=== PATIENT | male | born 1945 | race Caucasian/White ===

== ENCOUNTER → 2016-06-13 | Outpatient (CLI) | payer OTHER ==
[~2016-06-13] MED LIST: ASPI81TA28 PO; ATOR10TA88 PO; GLUCTAB18 PO; LEVO25TA PO; VNTHFA/IN INH
--- NOTE | 2016-06-13 13:48 | DIAGNOSTIC IMAGING REPORT ---
C-SPINE ROUTINE 4 OR 5 VIEWS CLINICAL HISTORY: Neck pain with myelopathy. COMPARISON STUDY: No previous studies for comparison. FINDINGS: C7 is partially obscured on this exam. Alignment of the visualized portions of the cervical spine is anatomic and no acute fracture is identified. Disc spaces are preserved. There is mild to moderate anterior osteophytosis, most pronounced at the C5-C6 level. Bony neural foramen appear patent. IMPRESSION: 1. Partial obscuration of C7. 2. Preserved disc spaces with mild to moderate anterior osteophytosis. 3. Patent bony neural foramen. Electronically signed by: Austin Jackson M.D. 06/13/2016 1:47 PM Dictated Date/Time: 06/13/2016 1:45 PM
== END | disposition home or self-care (01) ==
LOC: C.RAD 13:15
PROVIDERS: ATTEND Family Medicine
DX: M51.26 Other intervertebral disc displacement, lumbar region (principal)

== ENCOUNTER → 2016-10-05 | Outpatient (CLI) | payer OTHER ==
[~2016-10-05] MED LIST changes: +ATOR10TA82 PO; -ATOR10TA88 PO
--- NOTE | 2016-10-05 12:51 | DIAGNOSTIC IMAGING REPORT ---
RIGHT HIP UNILATERAL 2 VIEWS CLINICAL HISTORY: Right hip pain. COMPARISON: None FINDINGS: Alignment of the right hip is anatomic. There is no fracture or suspicious lesion. Joint space is preserved. There is moderate osteophytosis of the right hip, most pronounced along the acetabulum. There is no evidence for avascular necrosis. IMPRESSION: 1. No acute fracture. 2. Preserved right hip joint space with moderate osteophytosis of the right hip. Electronically signed by: Austin Jackson M.D. 10/05/2016 12:50 PM Dictated Date/Time: 10/05/2016 12:49 PM
== END | disposition home or self-care (01) ==
LOC: C.RAD 12:27
PROVIDERS: ATTEND Family Medicine
DX: M25.551 Pain in right hip (principal); M25.751 Osteophyte, right hip

== ENCOUNTER → 2016-10-07 | Outpatient (CLI) | payer OTHER ==
--- NOTE | 2016-10-07 08:48 | DIAGNOSTIC IMAGING REPORT ---
ABDOMINAL AORTIC ULTRASOUND CLINICAL HISTORY: Abdominal aortic aneurysm. COMPARISON STUDY: No previous studies for comparison. FINDINGS: The caliber of the proximal abdominal aorta was normal, measuring 2.5 x 2.3 cm. There is mild aneurysmal dilatation of the mid abdominal aorta, measuring 3 x 2.8 cm. There is a 4.5 x 4.4 cm infrarenal abdominal aortic aneurysm. The caliber of the proximal bilateral common iliac arteries is normal. There is at least moderate atherosclerotic plaque within these vessels. IMPRESSION: 4.5 x 4.4 cm infrarenal abdominal aortic aneurysm. Electronically signed by: Austin Jackson M.D. 10/07/2016 8:46 AM Dictated Date/Time: 10/07/2016 8:44 AM
== END | disposition home or self-care (01) ==
LOC: C.ULTR 08:18
PROVIDERS: ATTEND Family Medicine
DX: I71.4 Abdominal aortic aneurysm, without rupture (principal)

== ENCOUNTER → 2016-12-22 | Day surgery (SDC) | payer BC, OTHER ==
[2016-12-12 12:32] VITALS: BMI 28.0
[~2016-12-22] VITALS: Ht 175.3 cm; Wt 86.4 kg
[~2016-12-22] MED LIST changes: -ATOR10TA82 PO; +ATOR10TA88 PO; +LIDOCAINE HCL 2% 2 ML VIAL (20MG/ML) ONE; +PROPOFOL IV EMULSION 10 MG/ML 20 ML VIAL IV ONE; +SODIUM CHLORIDE 0.9% 500ML 500 ML IV ONE
[2016-12-22 13:07] VITALS: Ht 175.3 cm; Wt 86.4 kg
--- NOTE | 2016-12-22 13:09 | Endo History and Physical ---
History & Physical Date of Service: Dec 22, 2016. Chief Complaint: History of colon polyps Referring Physician: Dr. Rowdy Christensen History of Present Illness 71 yo CM who presents for colonoscopy secondary to history of colon polyps. Past Surgical History Hx Cardiac Surgery: Yes (HEART CATH, NO STENTS) Hx Internal Defibrillator: No Hx Pacemaker: No Hx Abdominal Surgery: No Hx of Implantable Prosthesis: No Hx Post-Op Nausea and Vomiting: No Hx Cancer Surgery: Yes (BCC REMOVALS) Hx Thoracic Surgery: No Hx Orthopedic: No Hx Urinary Tract Surgery: Yes (LITHOTRIPSY) Family History None Social History Smoking Status: Former Smoker Hx Substance Use: No Hx Alcohol Use: Yes (OCCASIONAL) Allergies Coded Allergies: No Known Allergies (Unverified , 12/22/16) Current Medications Reported Home Medications Medications Dose Route/Sig Max Daily Dose Days Date Category Ventolin Hfa (Albuterol) 200 Puffs/50661 Mcg Aers 2-4 Puffs INH Q6H PRN 12/12/16 Reported Osteo Bi-Flex Regular Str (Glucosamine-Chondroitin) 1 Tab Tab 1 Tab PO QAM 12/12/16 Reported Aspirin Ec (Aspirin) 81 Mg Tab 81 Mg PO QPM 12/12/16 Reported Synthroid (Levothyroxine Sodium) 25 Mcg Tab 25 Mcg PO QAM 12/12/16 Reported Lipitor (Atorvastatin Calcium) 10 Mg Tab 10 Mg PO QPM 12/12/16 Reported Vital Signs Weight (Kilograms): 86.36 Height (Feet): 5 Height (Inches): 9 Physical Exam General Appearance: WD/WN, no apparent distress Respiratory/Chest: Auscultation: breath sounds normal Cardiovascular: Heart Auscultation: RRR Abdomen: Bowel Sounds: normal Inspection & Palpation: soft, non-distended, no tenderness, guarding & rebound Assessment and Plan Assessment: 71 yo CM who presents for colonoscopy secondary to history of colon polyps. Plan: Proceed with colonoscopy.
--- NOTE | 2016-12-22 14:14 | GI REPORT ---
Procedure Date: 12/22/2016 1:22 PM Procedure: Colonoscopy Indications: High risk colon cancer surveillance: Personal history of colonic polyps Medicines: Monitored Anesthesia Care Complications: No immediate complications. Estimated Blood Loss: Estimated blood loss: none. Procedure: Pre-Anesthesia Assessment: - Prior to the procedure, a History and Physical was performed, and patient medications and allergies were reviewed. The patient's tolerance of previous anesthesia was also reviewed. The risks and benefits of the procedure and the sedation options and risks were discussed with the patient. All questions were answered, and informed consent was obtained. Prior Anticoagulants: The patient has taken aspirin, last dose was 1 day prior to procedure. ASA Grade Assessment: III - A patient with severe systemic disease. After reviewing the risks and benefits, the patient was deemed in satisfactory condition to undergo the procedure. After I obtained informed consent, the scope was passed under direct vision. Throughout the procedure, the patient's blood pressure, pulse, and oxygen saturations were monitored continuously. The scope was introduced through the anus and advanced to the cecum, identified by appendiceal orifice and ileocecal valve. The colonoscopy was performed without difficulty. The patient tolerated the procedure well. The quality of the bowel preparation was good. The terminal ileum, ileocecal valve, appendiceal orifice, and rectum were photographed. Findings: A 4 mm polyp was found in the sigmoid colon. The polyp was sessile. The polyp was removed with a cold snare. Resection and retrieval were complete. To prevent bleeding after the polypectomy, one hemostatic clip was successfully placed (MR conditional). There was no bleeding at the end of the procedure. Non-bleeding internal hemorrhoids were found during retroflexion. The hemorrhoids were small. Impression: - One 4 mm polyp in the sigmoid colon, removed with a cold snare. Resected and retrieved. Clip (MR conditional) was placed. - Non-bleeding internal hemorrhoids. Recommendation: - Resume previous diet. - Continue present medications. - Repeat colonoscopy for surveillance based on pathology results. - Return to primary care physician as previously scheduled. Franco Costello DO 12/22/2016 2:14:29 PM This report has been signed electronically. Note Initiated On: 12/22/2016 1:22 PM I attest to the content of the Intraoperative Record and orders documented therein, exceptions below
--- NOTE | 2016-12-22 14:16 | Discharge Instructions ---
Endoscopy Patient Instructions Date / Procedure(s) Performed Dec 22, 2016. Colonoscopy Allergy Information Coded Allergies: No Known Allergies (Unverified , 12/22/16) Discharge Date / Findings Dec 22, 2016. Colon polyp Internal hemorrhoids Medication Instructions Restart Stopped Medication(s): OK to resume all medications today as prescribed Reported Home Medications Medications Dose Route/Sig Max Daily Dose Days Date Category Ventolin Hfa (Albuterol) 200 Puffs/55579 Mcg Aers 2-4 Puffs INH Q6H PRN 12/12/16 Reported Osteo Bi-Flex Regular Str (Glucosamine-Chondroitin) 1 Tab Tab 1 Tab PO QAM 12/12/16 Reported Aspirin Ec (Aspirin) 81 Mg Tab 81 Mg PO QPM 12/12/16 Reported Synthroid (Levothyroxine Sodium) 25 Mcg Tab 25 Mcg PO QAM 12/12/16 Reported Lipitor (Atorvastatin Calcium) 10 Mg Tab 10 Mg PO QPM 12/12/16 Reported Provider Instructions Activity Restrictions - No exercising or heavy lifting for 24 hours. - Do not drink alcohol the day of the procedure. - Do not drive a car or operate machinery until the day after the procedure. - Do not make any important decisions or sign important papers in 24 hours after the procedure. Following Day: - Return to full activity which may include returning to work/school. Diet Start your diet with liquids and light foods (jello, soup, juice, toast). Then eat your usual diet if not nauseated. Treatment For Common After Affects For mild abdominal pain, bloating, or excessive gas: - Rest - Eat lightly - Lie on right side Follow-Up Information Follow-up with DR TILLMAN as scheduled Anesthesia Information What You Should Know You have had a procedure that required some medicine to reduce anxiety and discomfort. This treatment is called moderate sedation. After receiving the treatment, you may be sleepy, but you will be able to breathe on your own. The effects of the treatment may last for several hours. Follow these instructions along with Activity/Diet recommendations noted above: * Do NOT do anything where dizziness or clumsiness would be dangerous. * Rest quietly at home today, then you can be up and about tomorrow. * Have a responsible person stay with you the rest of today. * You may have had an I.V. today. If so, you may take the dressing off later today. Recommendations Call your doctor if: * Trouble breathing * Continuous vomiting for more than 24 hours * Temperature above 101 degrees * Severe abdominal pain or bloating * Pain not relieved by pain medicine ordered * There is increased drainage or redness from any incision * A large amount of rectal bleeding greater than 2-3 tablespoons. (If you had a polyp/s removed or have hemorrhoids, a small amount of blood - from the rectum is to be expected.) * You have any unanswered questions or concerns. IN THE EVENT OF A SERIOUS EMERGENCY, GO TO THE NEAREST EMERGENCY ROOM Your discharge instructions were prepared by provider Franco Costello. Patient Instructions Signature Page Bartolome Lutz Patient (or Guardian) Signature/Date: I have read and understand the instructions given to me by my caregivers. Caregiver/RN/Doctor Signature/Date: The above-named patient and/or guardian has received patient instructions on this date. + Original Patient Signature Page (only) stays with chart. Please make copy for patient.
[2016-12-22 14:21] VITALS: BP 140/80; PULSE 67; O2SAT 97
--- NOTE | 2016-12-22 14:34 | Anesthesiology Progress Note ---
Anesthesia Post Op Note Date & Time Dec 22, 2016 at 14:33 Vital Signs Pain Intensity: 3 Vital Signs Past 12 Hours Date Time Temp Pulse Resp B/P (MAP) Pulse Ox O2 Delivery O2 Flow Rate FiO2 12/22/16 14:21 67 16 140/80 (100) 97 Room Air 12/22/16 14:06 70 16 126/73 (90) 95 Room Air 12/22/16 13:52 75 14 104/71 (82) 95 Room Air 12/22/16 13:17 36.7 81 18 161/91 (114) 96 Room Air Notes Mental Status: alert / awake / arousable, participated in evaluation Pt Amnestic to Procedure: Yes Nausea / Vomiting: adequately controlled Pain: adequately controlled Airway Patency, RR, SpO2: stable & adequate BP & HR: stable & adequate Hydration State: stable & adequate Anesthetic Complications: no major complications apparent
== END | disposition home or self-care (01) ==
LOC: C.GI 12:55
PROVIDERS: ATTEND Internal Medicine
DX: Z12.11 Encounter for screening for malignant neoplasm of colon (principal); D12.5 Benign neoplasm of sigmoid colon; K64.8 Other hemorrhoids; G62.9 Polyneuropathy, unspecified; J44.9 Chronic obstructive pulmonary disease, unspecified; Z79.899 Other long term (current) drug therapy; Z87.891 Personal history of nicotine dependence

== ENCOUNTER → 2016-12-30 | Outpatient (CLI) | payer OTHER ==
[~2016-12-30] MED LIST changes: -LIDOCAINE HCL 2% 2 ML VIAL (20MG/ML) ONE; -PROPOFOL IV EMULSION 10 MG/ML 20 ML VIAL IV ONE; -SODIUM CHLORIDE 0.9% 500ML 500 ML IV ONE
[2016-12-30 14:10] LABS: ALT/SGPT 33 U/L (12-78); BLOOD UREA NITROGEN 11 mg/dl (7-18); BUN/CREATININE RATIO 8.4 (10-20); CALCIUM 8.8 mg/dl (8.5-10.1); CARBON DIOXIDE 29 mmol/L (21-32); CHLORIDE 107 mmol/L (98-107); GLUCOSE 107 mg/dl (70-99); POTASSIUM 4.4 mmol/L (3.5-5.1); SODIUM 142 mmol/L (136-145)
[2016-12-30 14:21] LABS: CHOLESTEROL 119 mg/dl (0-200); CHOLESTEROL/HDL RATIO 3.8; HDL CHOLESTEROL 31 mg/dl; TRIGLYCERIDES 222 mg/dl (0-150); VERY LOW DENSITY LIPOPROT CALC 44 mg/dl
== END | disposition home or self-care (01) ==
LOC: C.LABMFLN 08:34
PROVIDERS: ATTEND Family Medicine
DX: E78.5 Hyperlipidemia, unspecified (principal); E03.9 Hypothyroidism, unspecified; G56.21 Lesion of ulnar nerve, right upper limb; G56.01 Carpal tunnel syndrome, right upper limb

== ENCOUNTER → 2017-01-05 | Outpatient (CLI) | payer OTHER ==
--- NOTE | 2017-01-05 12:53 | DIAGNOSTIC IMAGING REPORT ---
CT LUNG SCREENING, LOW DOSE WITH COMPUTER-AIDED DETECTION (CAD) CLINICAL HISTORY: Former smoker. COMPARISON STUDY: No previous studies for comparison. CT DOSE: 90.93 mGy.cm TECHNIQUE: Low-dose helical CT was acquired without intravenous contrast from lung apices to bases and reconstructed at 2.5 mm every 2 mm. CAD was utilized for this study. A dose lowering technique was utilized adhering to the principles of ALARA. FINDINGS: No pneumothorax. No pleural effusions. Mild paraseptal emphysema at the lung apices. Linear density base of the left lower lobe favor subsegmental atelectasis. Otherwise, the lungs are clear. No pulmonary nodules identified. Best seen on image 119 of 321 there is a 6 mm right suprahilar nodular density abutting the pulmonary vessels. Therefore, this favors a small lymph node. No suspicious lytic or blastic osseous lesions. Prominent AP window lymph nodes which measure 9 and 8 mm in short axis diameter. Otherwise, no mediastinal or hilar lymphadenopathy. No pericardial effusion. The heart is normal in size. Normal caliber thoracic aorta. The visualized unenhanced liver, spleen, and adrenal glands are unremarkable. IMPRESSION: 1. No pulmonary nodules identified. Please refer to the recommendations below for follow-up. 2. A few prominent AP window lymph nodes. These bear watching on future examinations. CAD FINDINGS: Overall Lung RADS Category: 1 Lung RADS Management Recommendation: Lung-RADS 1: Continue annual screening in 12 months. Lung RADS Follow Up Date: 2018-01-05 Lung RADS Nodule ID: Electronically signed by: Walter Dumont M.D. 01/05/2017 12:51 PM Dictated Date/Time: 01/05/2017 12:44 PM
== END | disposition home or self-care (01) ==
LOC: C.CTS 12:24
PROVIDERS: ATTEND Family Medicine
DX: Z12.2 Encounter for screening for malignant neoplasm of respiratory organs (principal); Z87.891 Personal history of nicotine dependence

== ENCOUNTER 2017-07-03 09:44 | Emergency (ER) | payer OTHER ==
[~2017-07-03] VITALS: Ht 177.8 cm; Wt 92.1 kg
[~2017-07-03 09:44] MED LIST changes: +ATOR10TA82 PO; -ATOR10TA88 PO
[2017-07-03 09:46] VITALS: TEMP 36.5; Ht 177.8 cm; Wt 92.1 kg
[2017-07-03] MEDS ORDERED: METOPROLOL SUCC 25MG EXT REL TAB PO STA (10:13)
[2017-07-03] MEDS ORDERED: ASPIRIN 81 MG CHEW PO STA (10:13)
[2017-07-03 10:36] LABS: HEMATOCRIT 48.7 % (42-52); HEMOGLOBIN 17.9 g/dL (14.0-18.0); MEAN CELL VOLUME 88.9 fL (80-100); MEAN CORPUSCULAR HEMOGLOBIN 32.7 pg (25-34); MEAN CORPUSCULAR HGB CONC 36.8 g/dl (32-36); MEAN PLATELET VOLUME 9.7 fL (7.4-10.4); PLATELET COUNT 232 K/uL (130-400); RED CELL DISTRIBUTION WIDTH CV 12.8 % (11.5-14.5); RED CELL DISTRIBUTION WIDTH SD 41.6 fL (36.4-46.3); WHITE BLOOD COUNT 8.08 K/uL (4.8-10.8)
[2017-07-03] MEDS ORDERED: NTRGSL/4 UT (10:38)
[2017-07-03] MEDS ORDERED: METO25TA3 PO (10:38)
[2017-07-03] MEDS ORDERED: LEVO25TA PO (10:38)
[2017-07-03] MEDS ORDERED: GLUCTAB18 PO (10:38)
[2017-07-03] MEDS ORDERED: LPT10 PO (10:38)
[2017-07-03] MEDS ORDERED: PRVHFAIN INH (10:38)
[2017-07-03] MEDS ORDERED: ASPI81TA28 PO (10:38)
[2017-07-03 10:45] LABS: ALBUMIN 4.4 gm/dl (3.4-5.0); ALT/SGPT 43 U/L (12-78); BLOOD UREA NITROGEN 10 mg/dl (7-18); CALCIUM 9.3 mg/dl (8.5-10.1); CARBON DIOXIDE 28 mmol/L (21-32); CREATININE 1.35 mg/dl (0.60-1.40); GLUCOSE 104 mg/dl (70-99); LIPASE 237 U/L (73-393); SODIUM 139 mmol/L (136-145)
[2017-07-03 10:49] LABS: ALKALINE PHOSPHATASE 101 U/L (45-117); AST/SGOT 23 U/L (15-37); TOTAL PROTEIN 8.2 gm/dl (6.4-8.2)
--- NOTE | 2017-07-03 10:49 | DIAGNOSTIC IMAGING REPORT ---
CHEST ONE VIEW PORTABLE CLINICAL HISTORY: 71 years-old Male presenting with CHEST PAIN. TECHNIQUE: Portable upright AP view of the chest was obtained. COMPARISON: None. FINDINGS: Atherosclerosis of the aortic arch. Cardiac silhouette normal in size. Mild elevation of the bilateral hemidiaphragms. Minimal basilar opacities. No pleural effusion or pneumothorax. Degenerative changes of the thoracic spine. IMPRESSION: 1. Minimal bibasilar opacities likely atelectasis. No other evidence of acute cardiopulmonary disease. Electronically signed by: Sd Tomas M.D. 07/03/2017 10:47 AM Dictated Date/Time: 07/03/2017 10:46 AM
[2017-07-03 11:55] VITALS: O2SAT 95
[2017-07-03 15:27] VITALS: BP 145/91; PULSE 105; O2SAT 96
--- NOTE | 2017-07-03 16:30 | EMERGENCY ROOM VISIT NOTE ---
History Report prepared by Taylor: Yenni Díaz Under the Supervision of: Dr. Jesus Manuel Faustin M.D. First contact with patient: 10:03 Chief Complaint: CARDIAC ASSESSMENT Stated Complaint: TIGHTNESS IN CHEST ON LEFT SIDE- CARDIAC HX Nursing Triage Summary: Pt states, "I have pressure around my heart, on the left side." Pain started approx 0630. Denies worsening sob, dizziness/lightheaded, n/v. Denies radiation of pain. Cardiac cath approx 2004 after an abnormal EKG. Reports hx of aneurysm History of Present Illness The patient is a 71 year old male who presents to the Emergency Room with complaints of persistent chest tightness since 0630 this morning. He states the tightness in his chest is more on his left side. He rates his pain a 2/10 in severity. He reports the pain is basically gone. He states the discomfort feels like indigestion, though he reports that he did not eat this morning. He reports having a sharp pain in his chest two weeks ago. He denies any shortness of breath, nausea, or sweating. He denies any use of nitroglycerin. He states that he had some abnormalities with his heart a few years ago. He has a history of cardiac catheterization, though he has not had any stents or cardiac surgeries. He reports chronic back problems with associated leg numbness. He regularly takes baby Aspirin and Lipitor nightly. He reports that he has not taken is blood pressure medication, because he has not had anything to eat. He takes Metoprol. Source of History: patient Onset: 0630 this morning Position: chest Symptom Intensity: 2/10 Quality: other (tightness) Timing: other (persistent) Associated Symptoms: No SOB, No nausea Note: He denies any sweating. Review of Systems See HPI for pertinent positives & negatives. A total of 10 systems reviewed and were otherwise negative. Past Medical & Surgical Medical Problems: (1) Abdominal aneurysm (2) Back pain (3) CAD (coronary artery disease) (4) COPD (chronic obstructive pulmonary disease) (5) HTN (hypertension) Family History FH: Parkinson's disease FHx: dementia FHx: stroke Hypertension Social History Smoking Status: Former Smoker (1 ppd) Smokeless Tobacco Use: No Alcohol Use: none Drug Use: none Marital Status: Housing Status: lives with significant other Occupation Status: unemployed Current/Historical Medications Scheduled Aspirin (Aspirin Ec), 81 MG PO QPM Atorvastatin (Lipitor), 10 MG PO QPM Glucosamine-Chondroitin (Osteo Bi-Flex Regular Str), 1 TAB PO QAM Levothyroxine Sodium (Synthroid), 25 MCG PO QAM Metoprolol Succ (Toprol Xl) (Toprol-Xl), 25 MG PO DAILY Scheduled PRN Albuterol (Ventolin Hfa), 2 PUFFS INH Q4 PRN for COUGH/WHEEZE Albuterol Hfa (Ventolin Hfa), 2-4 PUFFS INH Q6H PRN for SOB/Wheezing Nitroglycerin (Nitrostat), 0.4 MG UT PRN PRN for Chest Pain Allergies Coded Allergies: No Known Allergies (Unverified , 12/22/16) Physical Exam Vital Signs Date Time Temp Pulse Resp B/P (MAP) Pulse Ox O2 Delivery O2 Flow Rate FiO2 07/03/17 15:27 105 18 145/91 96 Room Air 07/03/17 13:58 82 18 134/88 98 Room Air 07/03/17 13:26 80 18 121/82 97 Room Air 07/03/17 11:55 95 Room Air 07/03/17 11:44 74 16 95 Room Air 07/03/17 11:31 128/85 07/03/17 11:14 80 18 94 Room Air 07/03/17 11:01 142/95 07/03/17 10:45 96 Room Air 07/03/17 10:45 84 18 148/93 95 Room Air 07/03/17 10:44 88 22 95 07/03/17 10:34 85 07/03/17 10:31 148/93 07/03/17 09:46 36.5 89 18 182/103 96 Room Air Physical Exam GENERAL: Patient is in no acute distress. HEENT: No acute trauma, normocephalic atraumatic, mucous membranes moist, no nasal congestion, no scleral icterus. NECK: No stridor, no adenopathy, no meningismus, trachea is midline. LUNGS: Clear to auscultation bilaterally, no wheeze, no rhonchi, breath sounds equal. HEART: Without murmurs gallops or rubs, regular rate and rhythm. ABDOMEN: Soft, nontender, bowel sounds positive, no hernias, no peritonitis. EXTREMITIES: No cyanosis or edema, full range of motion of all the joints without pain or difficulty, no signs for acute trauma. NEUROLOGIC: Oriented x 3, no acute motor or sensory deficits, no focal weakness. SKIN: No rash, no jaundice, no diaphoresis. Medical Decision & Procedures ER Provider Diagnostic Interpretation: Radiology results as stated below per my review and radiologist interpretation: CHEST ONE VIEW PORTABLE CLINICAL HISTORY: 71 years-old Male presenting with CHEST PAIN. TECHNIQUE: Portable upright AP view of the chest was obtained. COMPARISON: None. FINDINGS: Atherosclerosis of the aortic arch. Cardiac silhouette normal in size. Mild elevation of the bilateral hemidiaphragms. Minimal basilar opacities. No pleural effusion or pneumothorax. Degenerative changes of the thoracic spine. IMPRESSION: 1. Minimal bibasilar opacities likely atelectasis. No other evidence of acute cardiopulmonary disease. Electronically signed by: Sd Tomas M.D. 07/03/2017 10:47 AM Dictated Date/Time: 07/03/2017 10:46 AM Laboratory Results 07/03/17 10:05 07/03/17 10:05 Test 07/03/17 10:05 07/03/17 12:32 Red Blood Count 5.48 M/uL (4.7-6.1) Mean Corpuscular Volume 88.9 fL (80-100) Mean Corpuscular Hemoglobin 32.7 pg (25-34) Mean Corpuscular Hemoglobin Concent 36.8 g/dl (32-36) RDW Standard Deviation 41.6 fL (36.4-46.3) RDW Coefficient of Variation 12.8 % (11.5-14.5) Mean Platelet Volume 9.7 fL (7.4-10.4) Prothrombin Time 10.5 SECONDS (9.0-12.0) Prothromb Time International Ratio 1.0 (0.9-1.1) Activated Partial Thromboplast Time 24.0 SECONDS (21.0-31.0) Partial Thromboplastin Ratio 0.9 Anion Gap 7.0 mmol/L (3-11) Est Creatinine Clear Calc Drug Dose 55.6 ml/min Estimated GFR () 59.9 Estimated GFR (Non- 51.7 BUN/Creatinine Ratio 7.5 (10-20) Calcium Level 9.3 mg/dl (8.5-10.1) Total Bilirubin 0.8 mg/dl (0.2-1) Aspartate Amino Transf (AST/SGOT) 23 U/L (15-37) Alanine Aminotransferase (ALT/SGPT) 43 U/L (12-78) Alkaline Phosphatase 101 U/L (45-117) Total Protein 8.2 gm/dl (6.4-8.2) Albumin 4.4 gm/dl (3.4-5.0) Globulin 3.8 gm/dl (2.5-4.0) Albumin/Globulin Ratio 1.2 (0.9-2) Lipase 237 U/L (73-393) Troponin I < 0.015 ng/ml (0-0.045) Laboratory results reviewed by me. Medications Administered Medications (Trade) Dose Ordered Sig/Sharad Route Start Time Stop Time Status Last Admin Dose Admin Aspirin (Aspirin Chew) 324 mg NOW STAT PO 07/03/17 10:13 07/03/17 10:17 DC 07/03/17 10:44 324 MG Metoprolol Succinate (Toprol Xl Tab) 25 mg NOW STAT PO 07/03/17 10:13 07/03/17 10:17 DC 07/03/17 10:44 25 MG ECG Per My Interpretation Indication: chest pain Rate (beats per minute): 81 Rhythm: normal sinus Findings: no ectopy (no PVCs), other (No ST elevation) Change: Patient's electrocardiogram interpreted by me. ED Course 1006: The patient was evaluated in room B10. A complete history and physical exam was performed. 1013: Ordered Toprol 25 mg PO and Aspirin 324 mg PO 1116: I spoke with SCARLET Reyes history department chair. We discussed the patient's case. He will review the patients case. 1123: I spoke with SCARLET Reyes history department chair. He recommends a second troponin sent to lab at 1200 today. He will consider administering a stress test. 1317: I reassessed the patient at this time. He is feeling better and resting comfortably. The patient will be taken to the [facility] for further evaluation by Dr. Willett, history department chair. 1515: I spoke with SCARLET Reyes history department chair. He states the patient's stress test is normal. The patient will be discharged home. 1518: I reassessed the patient at this time. He is feeling better and resting comfortably. I discussed the results and treatment plan with the patient. I answered all pertaining questions that he had. He expressed understanding and verbalized agreement. The patient will be discharged home. Medical Decision The patient is a 71 year old male who presents to the ED with complaints of chest tightness. Differential diagnoses considered include angina, musculoskeletal pain, reflux, gastritis, PNA, PE, and aortic dissection. There is no leukocytosis or concerning anemia. No significant electrolyte abnormality, kidney failure or hepatitis. EKG shows a normal sinus rhythm, no acute ischemia. Cardiac enzyme testing 2 is not consistent with acute cardiac injury. There is no coagulopathy. Patient was given his typical dose of oral metoprolol, he had not taken his metoprolol this morning. He received oral aspirin. I discussed the case with cardiology. The patient was felt a good candidate for a stress test. This was performed and was read by our history department chair as essentially unremarkable. The patient was reassured by his workup, he is being discharged with family doctor follow-up. The cause for the pain/tightness is unclear, from a cardiac standpoint, things seem stable. Medication Reconcilliation Current Medication List: was personally reviewed by me Blood Pressure Screening Patient's blood pressure: Elevated blood pressure Blood pressure disposition: Elevated BP felt to be situational Consults Time Called: 1105 Consulting Physician: SCARLET Reyes history department chair Returned Call: [phone] I spoke with SCARLET Reyes history department chair. We discussed the patient's case. He will review the patients case. 1123: I spoke with SCARLET Reyes history department chair. He recommends a second troponin sent to lab at 1200 today. He will consider administering a stress test. 1515: I spoke with SCARLET Reyes history department chair. He states the patient's stress test is normal. The patient will be discharged home. Impression Primary Impression: Precordial chest pain Scribe Attestation The scribe's documentation has been prepared under my direction and personally reviewed by me in its entirety. I confirm that the note above accurately reflects all work, treatment, procedures, and medical decision making performed by me. Departure Information Dispostion Home / Self-Care Referrals Rowdy Christensen M.D. (PCP) Forms IMPORTANT VISIT INFORMATION Patient Instructions My [facility] Additional Instructions heart testing and stress test today were ok follow with jamie puckett for a recheck later this week return for worsening symptoms
--- NOTE | 2017-07-03 16:56 | EXERCISE STRESS ECHO ---
*NOTICE TO RECEIVING LIBERTARIAN AGENCY This information is strictly Confidential and protected under [place] law. [place] law prohibits you from making any further disclosure of this information unless further disclosure is expressly permitted by the written consent of the person to whom it pertains or is authorized by law. A general authorization for the release of medical or other information is not sufficient for this purpose. Hospital accepts no responsibility if the information is made available to any other person, INCLUDING THE PATIENT. Interpretation Summary * Name: ANTHONY REINA Study Date: 07/03/2017 01:46 PM BP: 154/88 mmHg * Patient Location: .ED HR: 72 * : 1945 (M/d/yyyy) Gender: Male Height: 70 in * Age: 71 yrs Ethnicity: [place] Weight: 203 lb * Ordering Physician: Jesus Manuel Faustin * Referring Physician: Reece De La Vega * Performed By: Gabriela Banks RCS * * Reason For Study: Chest Pain * BSA: 2.1 m2 * -- Conclusions -- * Left ventricular systolic function is normal. * Grade I diastolic dysfunction, (abnormal relaxation pattern). * Diagnostic exercise echocardiogram without evidence of inducible ischemia. Procedure Details * ECHOEX, CPT #10260 * ECHO COLOR FLOW, CPT #73459 * ECHO DOPPLER, CPT #75404 Left Ventricular Findings with Stress * Diagnostic exercise echocardiogram without evidence of inducible ischemia. Left Ventricle * The left ventricle is normal in size. * There is normal left ventricular wall thickness. * Left ventricular systolic function is normal. * Grade I diastolic dysfunction, (abnormal relaxation pattern). * The left ventricular wall motion is normal at rest. Right Ventricle * The right ventricle is normal in size and function. * The right ventricular systolic function is normal as assessed by tricuspid annular plane systolic excursion (TAPSE) (normal >1.5 cm). Atria * The left atrial size is normal. * Right atrial size is normal. Mitral Valve * The mitral valve is grossly normal. * Significant mitral regurgitation is absent. Tricuspid Valve * The tricuspid valve is not well visualized, but is grossly normal. * There is trace tricuspid regurgitation. Aortic Valve * The aortic valve is normal in structure and function. * The aortic valve is trileaflet. * No hemodynamically significant valvular aortic stenosis. * There is no significant aortic regurgitation. Great Vessels * The aortic root is normal size. Pericardium * There is no pericardial effusion. Stress Parameters * Normal baseline electrocardiogram. * There was [address] segment depression at peak exertion. * The stress portion of this study was personally supervised by the undersigned interpreting physician. * Rest heart rate was '72' BPM. * Rest blood pressure was '154/88' * Maximum heart rate achieved was 153 bpm. * Maximum heart rate was 104 % of maximum age-predicted heart rate. * Maximum blood pressure was '218/89' * Total exercise time was '6:00' * Maximum exercise MET level achieved was '7.0' METS * Maximum treadmill speed was '2.5' miles per hour. * Maximum treadmill elevation was '12'% grade. * Exercise was terminated due to 'fatigue' Left Ventricular Findings with Stress * Baseline EKG was normal There was [address] segment depression at peak exertion Baseline blood pressure was slightly elevated in the patient had hypertensive response to exercise Baseline echocardiographic images were normal There was normal augmentation of all segments without development of wall motion abnormalities at peak exertion No symptoms reported during the test MMode 2D Measurements and Calculations IVSd 0.99 cm IVSs 1.6 cm LVIDd 3.4 cm LVIDs 2.4 cm LVPWd 10 cm LVPWs 1.5 cm IVS/LVPW 0.99 FS 30.0 % EDV(Teich) 47.4 ml ESV(Teich) 19.7 ml EF(Teich) 58.4 % EDV(cubed) 39.3 ml ESV(cubed) 13.5 ml EF(cubed) 65.7 % % IVS thick 59.9 % % LVPW thick 46.3 % LV mass(C)d 97.7 grams LV mass(C)dI 46.5 grams/m\S\2 LV mass(C)s 121.5 grams LV mass(C)sI 57.9 grams/m\S\2 SV(Teich) 27.7 ml SI(Teich) 13.2 ml/m\S\2 SV(cubed) 25.8 ml SI(cubed) 12.3 ml/m\S\2 Ao root diam 3.8 cm Ao root area 11.1 cm\S\2 ACS 1.2 cm LA dimension 3.8 cm asc Aorta Diam 3.2 cm LA/Ao 1.0 EDV(MOD-sp4) 88.3 ml ESV(MOD-sp4) 42.0 ml EF(MOD-sp4) 52.4 % EDV(MOD-sp2) 110.8 ml ESV(MOD-sp2) 29.4 ml EF(MOD-sp2) 73.5 % SV(MOD-sp4) 46.3 ml SI(MOD-sp4) 22.0 ml/m\S\2 SV(MOD-sp2) 81.4 ml SI(MOD-sp2) 38.8 ml/m\S\2 Doppler Measurements and Calculations MV E max nhan 56.5 cm/sec MV A max nhan 85.4 cm/sec MV E/A 0.66 MV P1/2t max nhan 51.3 cm/sec MV P1/2t 96.1 msec MVA(P1/2t) 2.3 cm\S\2 MV dec slope 156.5 cm/sec\S\2 MV dec time 0.25 sec Ao V2 max 110.0 cm/sec Ao max PG 4.8 mmHg Ao max PG (full) 0.93 mmHg LV V1 max PG 3.9 mmHg LV V1 max 98.9 cm/sec PA V2 max 100.5 cm/sec PA max PG 4.0 mmHg
== END 2017-07-03 15:37 | disposition home or self-care (01) ==
LOC: C.EDB 09:46
DX: R07.2 Precordial pain (principal); I25.10 Atherosclerotic heart disease of native coronary artery without angina pectoris; J44.9 Chronic obstructive pulmonary disease, unspecified; I10 Essential (primary) hypertension; Z86.79 Personal history of other diseases of the circulatory system; Z87.891 Personal history of nicotine dependence; Z79.82 Long term (current) use of aspirin; Z82.0 Family history of epilepsy and other diseases of the nervous system; Z81.8 Family history of other mental and behavioral disorders; Z82.3 Family history of stroke; Z82.49 Family history of ischemic heart disease and other diseases of the circulatory system

== ENCOUNTER → 2017-07-11 | Outpatient (CLI) | payer OTHER ==
[~2017-07-11] MED LIST changes: -ATOR10TA82 PO; +LPT10 PO; +METO25TA3 PO; +NTRGSL/4 UT; +PRVHFAIN INH
== END | disposition home or self-care (01) ==
LOC: C.PATHSPEC 16:47
PROVIDERS: ATTEND Dermatology
DX: L57.0 Actinic keratosis (principal)

== ENCOUNTER → 2017-09-19 | Outpatient (CLI) | payer OTHER | END | disposition home or self-care (01) | LOC: C.MAMM 11:36 | PROVIDERS: ATTEND Family Medicine Adolescent Medicine | DX: Z13.820 Encounter for screening for osteoporosis (principal); M85.852 Other specified disorders of bone density and structure, left thigh; M85.851 Other specified disorders of bone density and structure, right thigh ==

== ENCOUNTER 2019-03-15 06:15 | Inpatient (IN) ==
--- NOTE | 2019-03-08 16:12 | PAT Medication Instructions ---
Medication Instructions Date of Service March 08, 2019 Home Medications albuterol sulfate 1 puff INHALATION Q6H PRN calcium carbonate [Calcium 600] 1,200 mg PO QAM cholecalciferol (vitamin D3) [Vitamin D3] 1,000 unit PO BID levothyroxine 25 mcg PO QAM metoprolol succinate 25 mg PO QAM nitroglycerin 1 dose SUBLINGUAL UD PRN pyridoxine (vitamin B6) [Vitamin B-6] 100 mg PO QAM vitamins A,C,L-gzrt-fekfvb [PreserVision AREDS] 2 tab PO BID aspirin 81 mg PO HS Continue as directed nitroglycerin 1 dose SUBLINGUAL UD PRN (if needed) ASK your prescriber and surgeon aspirin 81 mg PO HS STOP taking 2 weeks before surgery (or as soon as possible if surgery is within 2 weeks) vitamins A,C,X-lwel-gmhsvq [PreserVision AREDS] 2 tab PO BID DO NOT take the morning of surgery calcium carbonate [Calcium 600] 1,200 mg PO QAM cholecalciferol (vitamin D3) [Vitamin D3] 1,000 unit PO BID pyridoxine (vitamin B6) [Vitamin B-6] 100 mg PO QAM Take morning of surgery With a small sip of water, OTHERWISE NOTHING TO EAT OR DRINK AFTER MIDNIGHT: albuterol sulfate 1 puff INHALATION Q6H PRN (use if needed; please bring with you to hospital day of surgery if possible) levothyroxine 25 mcg PO QAM metoprolol succinate 25 mg PO QAM Take evening before surgery albuterol sulfate 1 puff INHALATION Q6H PRN (if needed) cholecalciferol (vitamin D3) [Vitamin D3] 1,000 unit PO BID Other Notes If you have any questions please call us at [phone] or [phone] or [phone] or [phone]
--- NOTE | 2019-03-11 11:29 | Anesthesiology Consultation ---
Date of Service March 11, 2019 Assessment & Plan (1) Encounter for pre-operative examination: - Awaiting review preop testing (labs, CXR). - Awaiting nuclear stress test report ([facility] 03/06/19). - Awaiting most recent cardiology office visit note ([facility] cardiology). Chart Review Chart Review: Patient seen in Pre Admission Testing Teaching & Discussion Pre-Anesthesia Teaching/Discussion Notes: Instructed NPO after midnight before surgery,except medications with 15 cc of water. Medication instructions provided according to the PAT guidelines. History Surgery Operation Date: 03/15/19 08:00 Proposed Procedures p Percutaneous Endovascular Aneurysm Repair - Miguel Dutton MD Height/Weight Height: 5 ft 8.5 in Weight: 92.2 kg Allergies Allergy/AdvReac Type Severity Reaction Status Date / Time alendronate sodium AdvReac severe Verified 03/11/19 11:32 "bone aches" risedronate sodium AdvReac severe Verified 03/11/19 11:32 "bone aches" Medications Home Medications Medication Instructions Recorded Confirmed Last Taken albuterol sulfate 1 puff INHALATION Q6H PRN 08/06/18 03/07/19 Unknown calcium carbonate [Calcium 600] 1,200 mg PO QAM 08/06/18 03/07/19 03/01/19 cholecalciferol (vitamin D3) 1,000 unit PO BID 08/06/18 03/07/19 03/01/19 [Vitamin D3] levothyroxine 25 mcg PO QAM 08/06/18 03/07/19 03/01/19 metoprolol succinate 25 mg PO QAM 08/06/18 03/07/19 03/01/19 nitroglycerin 1 dose SUBLINGUAL UD PRN 08/06/18 03/07/19 Unknown pyridoxine (vitamin B6) [Vitamin 100 mg PO QAM 03/01/19 03/07/19 03/01/19 B-6] vitamins A,C,P-mnct-zaeids 2 tab PO BID 03/01/19 03/07/19 03/01/19 [PreserVision AREDS] aspirin 81 mg PO HS 03/07/19 03/07/19 Unknown Past Medical History Medical History AAA (abdominal aortic aneurysm) 5.5cm (reason for upcoming surgery) Asthma stable CAD (coronary artery disease) non-obstructive COPD (chronic obstructive pulmonary disease) stable Chronic back pain Dyslipidemia HTN (hypertension) History of basal cell carcinoma s/p excision History of kidney stones History of melanoma s/p excision Hypothyroidism Lumbar stenosis Osteoporosis TMJ click rare clicking, no locking Exercise / Class Metabolic Activity III < 4 Walking/Shop/Light housework (one flight of stairs (no chest pain, + SOB occasional)) Past Family History Family History Other No pertinent family history in first degree relatives Past Surgical History Surgical History History of basal cell carcinoma (BCC) excision History of cardiac cath 5+ YEARS AGO= NO STENTS History of colonoscopy History of lithotripsy History of melanoma excision History of tonsillectomy History of tooth extraction Past Anesthesia History No Hx of Anesthesia Complications and No Family Hx of Anesthesia Complications History of PONV No Hx of PONV and No Hx of Motion Sickness Social History Smoking Status: Former smoker Do You Dip or Chew Tobacco: No Smoking End Date: Quit 2014; hx 1 PPD Hx Alcohol Use: Yes Alcohol type: beer, wine and hard liquor alcohol intake frequency: holidays/special occasions only Hx Substance Use: No substance use type: does not use Review of Systems Occasional reflux. Patient denies chest pain, shortness of breath, cough, wheezing, palpitations. Physical Exam Vital Signs VITALS BP 152/89 P 91 TEMP 97.6 SP02 95%RA RESP 18 PHYSICAL Full neck and c-spine range of motion. Full TMJ range of motion. TMD 3 finger breaths Mallampati Score 3 Dentition: partial upper, several missing teeth, poor dentition Lungs: clear throughout to auscultation Cardiac: regular rate and rhythm, no murmurs noted Spine: normal Carotid arteries: negative bruit Extremities: no edema Testing Electrocardiogram Date: 03/01/19 NSR at 78bpm. NS STA. Other Testing CTA Abdomen: 03/01/19: Bilobed infrarenal abdominal aortic aneurysm which measures up to 5.5 x 5.5 cm. No rupture. Trace nonspecific adjacent infiltration which is unchanged from CT performed earlier today. Findings discussed with Dr. Gonzalez at time of dictation. Left sided nephrolithiasis. No ureteral calculi. No bowel obstruction. Normal appendix.
[2019-03-11 12:23] LABS: Basophils # (auto) 0.03 K/uL (0-0.2); Basophils % (auto) 0.5 %; Eosinophils # (auto) 0.08 K/uL (0-0.5); Eosinophils % (auto) 1.2 %; Hematocrit (blood only) 45.4 % (42-52); Hemoglobin 15.8 g/dL (14.0-18.0); Immature Granulocytes # (auto) 0.07 K/uL (0.00-0.02); Immature Granulocytes % (auto) 1.1 %; Lymphocytes # (auto) 1.44 K/uL (1.2-3.4); Mean Corpuscular Hgb Conc 34.8 g/dL (32-36); Mean Corpuscular Volume 91.9 fL (80-100); Mean Platelet Volume 10.3 fL (7.4-10.4); Monocytes # (auto) 0.51 K/uL (0.11-0.59); Monocytes % (auto) 7.8 %; Neutrophils # (auto) 4.43 K/uL (1.4-6.5); Neutrophils % (auto) 67.4 %; Platelet Count 203 K/uL (130-400); RDW Coefficient of Variation 12.7 % (11.5-14.5); RDW Standard Deviation 42.7 fL (36.4-46.3); Red Blood Count 4.94 M/uL (4.7-6.1); White Blood Count 6.56 K/uL (4.8-10.8)
--- NOTE | 2019-03-11 12:29 | XRay Report ---
XR chest Pre-admission PA/Lat CLINICAL HISTORY: Preoperative chest COMPARISON STUDY: 07/03/2017 FINDINGS: The cardiac and mediastinal contours are normal. There is no evidence of focal pulmonary co nsolidation. There is no evidence of failure. No pleural effusions are visualized.[There is stable merchant bsegmental left basilar atelectatic change. 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 IMPRESSION: No active disease in the chest. Electronically signed by: Donis Rivera M.D. 03/11/2019 12:27 PM
[2019-03-11 12:37] LABS: INR 1.1 (0.9-1.1); Partial Thromboplastin Ratio 0.9; Partial Thromboplastin Time 24.5 Seconds (21.0-31.0); Prothrombin Time 10.8 Seconds (9.0-12.0)
[2019-03-11 12:54] LABS: Calcium 9.4 mg/dl (8.5-10.1); Est GFR (African American) 55.6; Potassium 4.2 mmol/L (3.5-5.1)
--- NOTE | 2019-03-13 12:34 | Anesthesiology Consultation ---
Date of Service March 13, 2019 Assessment & Plan (1) Encounter for pre-operative examination: Chart Review Chart Review: Acceptable Risk for Surgery and Patient NOT seen in Pre Admission Testing Consults Requested none History Surgery Operation Date: 03/15/19 08:00 Proposed Procedures p Percutaneous Endovascular Aneurysm Repair - Miguel Dutton MD Height/Weight Height: 5 ft 8.5 in Weight: 92.2 kg Allergies Allergy/AdvReac Type Severity Reaction Status Date / Time alendronate sodium AdvReac severe Verified 03/11/19 11:32 "bone aches" risedronate sodium AdvReac severe Verified 03/11/19 11:32 "bone aches" Medications Home Medications Medication Instructions Recorded Confirmed Last Taken albuterol sulfate 1 puff INHALATION Q6H PRN 08/06/18 03/07/19 Unknown calcium carbonate [Calcium 600] 1,200 mg PO QAM 08/06/18 03/07/19 03/01/19 cholecalciferol (vitamin D3) 1,000 unit PO BID 08/06/18 03/07/19 03/01/19 [Vitamin D3] levothyroxine 25 mcg PO QAM 08/06/18 03/07/19 03/01/19 metoprolol succinate 25 mg PO QAM 08/06/18 03/07/19 03/01/19 nitroglycerin 1 dose SUBLINGUAL UD PRN 08/06/18 03/07/19 Unknown pyridoxine (vitamin B6) [Vitamin 100 mg PO QAM 03/01/19 03/07/19 03/01/19 B-6] vitamins A,C,I-kseh-unyvea 2 tab PO BID 03/01/19 03/07/19 03/01/19 [PreserVision AREDS] aspirin 81 mg PO HS 03/07/19 03/07/19 Unknown Past Medical History Medical History AAA (abdominal aortic aneurysm) 5.5cm (reason for upcoming surgery) Asthma stable CAD (coronary artery disease) non-obstructive COPD (chronic obstructive pulmonary disease) stable Chronic back pain Dyslipidemia HTN (hypertension) History of basal cell carcinoma s/p excision History of kidney stones History of melanoma s/p excision Hypothyroidism Lumbar stenosis Osteoporosis TMJ click rare clicking, no locking Past Family History Family History Other No pertinent family history in first degree relatives Past Surgical History Surgical History History of basal cell carcinoma (BCC) excision History of cardiac cath 5+ YEARS AGO= NO STENTS History of colonoscopy History of lithotripsy History of melanoma excision History of tonsillectomy History of tooth extraction Social History Smoking Status: Former smoker Do You Dip or Chew Tobacco: No Smoking End Date: Quit 2014; hx 1 PPD Hx Alcohol Use: Yes Alcohol type: beer, wine and hard liquor alcohol intake frequency: holidays/special occasions only Alcohol Intake Frequency Comment: OCAS Hx Substance Use: No substance use type: does not use Testing Laboratory Results 03/11/19 11:43 03/11/19 11:43 PT 10.8 Seconds (9.0-12.0) 03/11/19 11:43 INR 1.1 (0.9-1.1) 03/11/19 11:43 APTT 24.5 Seconds (21.0-31.0) 03/11/19 11:43 Blood Type O Positive 03/11/19 11:43 Antibody Screen NEGATIVE 03/11/19 11:43 Electrocardiogram Date: 03/04/19 Findings: + NSR @ and + NSST changes Chest X-Ray Date: 03/11/19 Findings: + NAD Stress Test Date: 03/06/19 Type: exercise Findings: + WNL Other Testing CTA: 5.5cm AAA
--- NOTE | 2019-03-15 05:59 | History & Physical Report ---
Date of Service March 15, 2019 History of Present Illness Primary Care Provider: Krista Koenig MD March 05, 2019 Name: ANTHONY LUTZ [facility] Number: [id number] : 1945 Date of Service: 03/05/2019 [place] [address] Koenig: We had the pleasure of seeing Mr. Lutz at our [facility]patient [facility]. As you are aware, he is a 73-year-old gentleman who I have been following for abdominal aortic aneurysm who recently had presented to the hospital with abdominal pain related to kidney stones and at that time had undergone a CT scan, which revealed an abdominal aortic aneurysm that had increased in size and reached about 5.5 cm in diameter now. The patient was evaluated at that time and his abdominal pain, was found to be related to his kidney stones. Today, he returns for evaluation in the office and reports that his abdominal pain has resolved, his chronic back pain and has not changed. He denies any chest pain or shortness of breath. Denies any fevers, chills, diarrhea or constipation. REVIEW OF SYSTEMS: Negative except for HPI. PAST MEDICAL HISTORY: Hypothyroidism, dyslipidemia, chronic back pain, coronary artery disease, COPD. PAST SURGICAL HISTORY: Includes a cardiac catheterization. MEDICATIONS: Aspirin, atorvastatin, levothyroxine, nitroglycerin, and Aleve p.r.n. ALLERGIES: ALENDRONATE and RISEDRONATE SOCIAL HISTORY: The patient quit smoking 2 years ago. Occasional social alcohol use and denies any illicit drug use. Lives with his . FAMILY HISTORY: Noncontributory. PHYSICAL EXAMINATION: Blood pressure is 142/76 on the left, 150/80 on the right, heart rate is 76, satting 97% on room air. General: The patient is awake, alert, oriented, follows commands, does not appear to be in distress. Chest: The patient has nonlabored respiratory. Regular rate and rhythm. Abdomen: Soft, nontender, nondistended, no scars or wounds on his abdomen, groins are clear, no sign of any rash in the groins; femoral pulses bilaterally palpable, DP pulses bilaterally. Moves both lower extremities. Motor and sensory is intact. No open wounds or ulcers on his feet. IMAGING: The patient underwent a CTA in the hospital, which revealed an enlarging abdominal aortic aneurysm, now at 5.5 cm in diameter. ASSESSMENT AND PLAN: In summary, this is a 73-year-old gentleman with abdominal aortic aneurysm that is 5.5 cm and has increased in size. 1. We will plan for an abdominal aortic aneurysm repair via endovascular technique---PEVAR. 2. Prior to our operation, we will plan for an echocardiogram and an exercise stress test. We have counseled the patient on taking his medications and avoiding caffeine and continuing his aspirin and statin. We have discussed with the patient his options open as well as endovascular repair, and he elected to proceed with an endovascular repair of his abdominal aortic aneurysm. He understood the risks and benefits involved and signed consent forms in the office today. Sincerely, #[id number] I saw and evaluated the patient. Discussed with the resident and agree with the resident's findings and plan as documented in the resident's note. Signature Line Electronic Signature on File CC: Rowdy Christensen MD [address] [id number] * CC: Krista Koenig MD [facility] [address] [place] [address] Electronically Reviewed/Signed by: David Carmona MD Author Signature Dt/Tm:03/05/2019 04:59 PM Resident Division of Vascular Surgery Electronically Reviewed/Signed by: Miguel Dutton MD Cosigner Signature Dt/Tm: 03/07/2019 08:47 AM Auger Press Operator [facility] [place] [address] TZA /LLD Result Type: .Consult Date of Service: March 05, 2019 00:00 EDT Authorization Status: Final Subject: Consult Ltr Author or Import Date: MD Mathew, David Tomlinson on March 05, 2019 15:13 EDT Verified By: MD Dutton Eugene J on March 07, 2019 08:47 EDT Encounter info: [id number], [facility] SC07, Clinic, 03/05/2019 - 03/05/2019 Contributor system: [id number] Allergies Allergy/AdvReac Type Severity Reaction Status Date / Time alendronate sodium AdvReac severe Verified 03/11/19 11:32 "bone aches" risedronate sodium AdvReac severe Verified 03/11/19 11:32 "bone aches" Home Medications Home Medications Medication Instructions Recorded Confirmed Type albuterol sulfate 1 puff INHALATION Q6H PRN 08/06/18 03/07/19 History calcium carbonate [Calcium 600] 1,200 mg PO QAM 08/06/18 03/07/19 History cholecalciferol (vitamin D3) 1,000 unit PO BID 08/06/18 03/07/19 History [Vitamin D3] levothyroxine 25 mcg PO QAM 08/06/18 03/07/19 History metoprolol succinate 25 mg PO QAM 08/06/18 03/07/19 History nitroglycerin 1 dose SUBLINGUAL UD PRN 08/06/18 03/07/19 History pyridoxine (vitamin B6) [Vitamin 100 mg PO QAM 03/01/19 03/07/19 History B-6] vitamins A,C,Z-nwia-sjbyhd 2 tab PO BID 03/01/19 03/07/19 History [PreserVision AREDS] aspirin 81 mg PO HS 03/07/19 03/07/19 History Past Med/Surg History Medical History AAA (abdominal aortic aneurysm) 5.5cm (reason for upcoming surgery) Asthma stable CAD (coronary artery disease) non-obstructive COPD (chronic obstructive pulmonary disease) stable Chronic back pain Dyslipidemia HTN (hypertension) History of basal cell carcinoma s/p excision History of kidney stones History of melanoma s/p excision Hypothyroidism Lumbar stenosis Osteoporosis TMJ click rare clicking, no locking Surgical History History of basal cell carcinoma (BCC) excision History of cardiac cath 5+ YEARS AGO= NO STENTS History of colonoscopy History of lithotripsy History of melanoma excision History of tonsillectomy History of tooth extraction Family History Other No pertinent family history in first degree relatives Social History Preferred Language: [place] Citizen Communication Ability: Effective Saturator Operator Required: No Beliefs That Will Affect Care: None Current Living Situation: Spouse Feels Safe at Home: Yes Smoking Status: Former smoker Second Hand Exposure: No ; Hx Alcohol Use: Yes Alcohol type: beer, wine and hard liquor Hx Substance Use: No
--- NOTE | 2019-03-15 06:00 | History & Physical Report ---
Date of Service March 15, 2019 History of Present Illness Primary Care Provider: Krista Koenig MD March 05, 2019 Name: [facility] [place] Number: [id number] : 1945 Date of Service: 03/05/2019 [place] [address] Koenig: We had the pleasure of seeing Mr. Lutz at our [facility]patient [facility]. As you are aware, he is a 73-year-old gentleman who I have been following for abdominal aortic aneurysm who recently had presented to the hospital with abdominal pain related to kidney stones and at that time had undergone a CT scan, which revealed an abdominal aortic aneurysm that had increased in size and reached about 5.5 cm in diameter now. The patient was evaluated at that time and his abdominal pain, was found to be related to his kidney stones. Today, he returns for evaluation in the office and reports that his abdominal pain has resolved, his chronic back pain and has not changed. He denies any chest pain or shortness of breath. Denies any fevers, chills, diarrhea or constipation. REVIEW OF SYSTEMS: Negative except for HPI. PAST MEDICAL HISTORY: Hypothyroidism, dyslipidemia, chronic back pain, coronary artery disease, COPD. PAST SURGICAL HISTORY: Includes a cardiac catheterization. MEDICATIONS: Aspirin, atorvastatin, levothyroxine, nitroglycerin, and Aleve p.r.n. ALLERGIES: ALENDRONATE and RISEDRONATE SOCIAL HISTORY: The patient quit smoking 2 years ago. Occasional social alcohol use and denies any illicit drug use. Lives with his . FAMILY HISTORY: Noncontributory. PHYSICAL EXAMINATION: Blood pressure is 142/76 on the left, 150/80 on the right, heart rate is 76, satting 97% on room air. General: The patient is awake, alert, oriented, follows commands, does not appear to be in distress. Chest: The patient has nonlabored respiratory. Regular rate and rhythm. Abdomen: Soft, nontender, nondistended, no scars or wounds on his abdomen, groins are clear, no sign of any rash in the groins; femoral pulses bilaterally palpable, DP pulses bilaterally. Moves both lower extremities. Motor and sensory is intact. No open wounds or ulcers on his feet. IMAGING: The patient underwent a CTA in the hospital, which revealed an enlarging abdominal aortic aneurysm, now at 5.5 cm in diameter. ASSESSMENT AND PLAN: In summary, this is a 73-year-old gentleman with abdominal aortic aneurysm that is 5.5 cm and has increased in size. 1. We will plan for an abdominal aortic aneurysm repair via endovascular technique---PEVAR. 2. Prior to our operation, we will plan for an echocardiogram and an exercise stress test. We have counseled the patient on taking his medications and avoiding caffeine and continuing his aspirin and statin. We have discussed with the patient his options open as well as endovascular repair, and he elected to proceed with an endovascular repair of his abdominal aortic aneurysm. He understood the risks and benefits involved and signed consent forms in the office today. Sincerely, #[id number] I saw and evaluated the patient. Discussed with the resident and agree with the resident's findings and plan as documented in the resident's note. Signature Line Electronic Signature on File CC: Rowdy Christensen MD [address] [id number] * CC: Krista Koenig MD [facility] [address] [place] [address] Electronically Reviewed/Signed by: David Carmona MD Author Signature Dt/Tm:03/05/2019 04:59 PM Resident Division of Vascular Surgery Electronically Reviewed/Signed by: Miguel Dutton MD Cosigner Signature Dt/Tm: 03/07/2019 08:47 AM Press Brake Operator [facility] [address] [address] TZA /LLD Result Type: .Consult Date of Service: March 05, 2019 00:00 EDT Authorization Status: Final Subject: Consult Ltr Author or Import Date: MD Mathew, David Tomlinson on March 05, 2019 15:13 EDT Verified By: MD Dutton Eugene J on March 07, 2019 08:47 EDT Encounter info: [id number], [facility] [place] [facility] SC07, Clinic, 03/05/2019 - 03/05/2019 Contributor system: [id number] Allergies Allergy/AdvReac Type Severity Reaction Status Date / Time alendronate sodium AdvReac severe Verified 03/11/19 11:32 "bone aches" risedronate sodium AdvReac severe Verified 03/11/19 11:32 "bone aches" Home Medications Home Medications Medication Instructions Recorded Confirmed Type albuterol sulfate 1 puff INHALATION Q6H PRN 08/06/18 03/07/19 History calcium carbonate [Calcium 600] 1,200 mg PO QAM 08/06/18 03/07/19 History cholecalciferol (vitamin D3) 1,000 unit PO BID 08/06/18 03/07/19 History [Vitamin D3] levothyroxine 25 mcg PO QAM 08/06/18 03/07/19 History metoprolol succinate 25 mg PO QAM 08/06/18 03/07/19 History nitroglycerin 1 dose SUBLINGUAL UD PRN 08/06/18 03/07/19 History pyridoxine (vitamin B6) [Vitamin 100 mg PO QAM 03/01/19 03/07/19 History B-6] vitamins A,C,[id number] 2 tab PO BID 03/01/19 03/07/19 History [PreserVision AREDS] aspirin 81 mg PO HS 03/07/19 03/07/19 History Past Med/Surg History Medical History AAA (abdominal aortic aneurysm) 5.5cm (reason for upcoming surgery) Asthma stable CAD (coronary artery disease) non-obstructive COPD (chronic obstructive pulmonary disease) stable Chronic back pain Dyslipidemia HTN (hypertension) History of basal cell carcinoma s/p excision History of kidney stones History of melanoma s/p excision Hypothyroidism Lumbar stenosis Osteoporosis TMJ click rare clicking, no locking Surgical History History of basal cell carcinoma (BCC) excision History of cardiac cath 5+ YEARS AGO= NO STENTS History of colonoscopy History of lithotripsy History of melanoma excision History of tonsillectomy History of tooth extraction Family History Other No pertinent family history in first degree relatives Social History Preferred Language: [place] Islander Communication Ability: Effective Sports Complex Attendant Required: No Beliefs That Will Affect Care: None Current Living Situation: Spouse Feels Safe at Home: Yes Smoking Status: Former smoker Second Hand Exposure: No ; Hx Alcohol Use: Yes Alcohol type: beer, wine and hard liquor Hx Substance Use: No
[~2019-03-15 06:15] MED LIST changes: -ASPI81TA28 PO; +CEFAZOLIN 2,000 MG/15 ML SYR IV SCH; -GLUCTAB18 PO; -LEVO25TA PO; -LPT10 PO; +LR 15ML/HR IV SCH; -METO25TA3 PO; -NTRGSL/4 UT; -PRVHFAIN INH; +SODIUM CHLORIDE 0.9% 1000ML 1,000 ML IV SCH; -VNTHFA/IN INH
[2019-03-15] MEDS ORDERED: ONDANSETRON INJ 2 MG/ML 2 ML VIAL ONE (07:05)
[2019-03-15] MEDS ORDERED: PROPOFOL IV EMULSION 10 MG/ML 20 ML VIAL IV ONE (07:05)
[2019-03-15] MEDS ORDERED: fentaNYL citrate 100 MCG/2 ML VIAL ONE ×2 (07:05→09:27)
[2019-03-15] MEDS ORDERED: MIDAZOLAM HCL 1 MG/ML 2ML VIAL ONE ×2 (07:05→09:22)
[2019-03-15] MEDS ORDERED: LIDOCAINE HCL 2% 2 ML VIAL/AMP(20MG/ML) INFIL ONE (07:05)
--- NOTE | 2019-03-15 07:13 | History & Physical Bridge Note ---
Date of Service March 15, 2019 History & Physical Bridge Note I have examined the patient, reviewed the History & Physical and in the interval since the performance of the History & Physical I have noted the following changes of clinical significance: no changes noted
[2019-03-15] MEDS ORDERED: METOPROLOL SUCC 25MG EXT REL TAB PO ONE (07:15)
[2019-03-15] MEDS ORDERED: BUPIVACAINE/EPINEPHRINE 0.5% MPF 1:200,000 30 ML VIAL ONE (07:23)
[2019-03-15] MEDS ORDERED: LIDOCAINE 2% JELLY 5 ML TUBE ONE (07:44)
[2019-03-15] MEDS ORDERED: HEPARIN IV BOLUS 7,000 UNITS in SYRINGE 0 ML IV ONE (09:03)
[2019-03-15] MEDS ORDERED: HEPARIN SOD (PORCINE) 1000 UNIT/ML 10 ML VIAL ONE (09:21)
[2019-03-15] MEDS ORDERED: VISIPAQUE IV PRN (09:34)
--- NOTE | 2019-03-15 09:36 | Post Operative Brief Note ---
Immediate Post Op Note v1 Date of Surgery March 15, 2019 Pre & Post Diagnosis Operation Date: 03/15/19 08:00 Pre-Op Diagnosis: Abdominal aortic aneurysm Post-Op Diagnosis: Abdominal aortic aneurysm I identified the patient and participated in the time-out.: Yes Procedure Operation Date: 03/15/19 08:00 Actual Procedures p Percutaneous Endovascular Aneurysm Repair, femoral percutaneous closure, bilateral - Miguel Dutton MD Surgeon Miguel Dutton MD Front End Architect Yamile Garcia MD Estimated Blood Loss 50 Findings Consistent with Post-Op Diagnosis Drains Walker Catheter Anesthesia Type MAC Complications none Disposition Accompanied Patient To Recovery: No Disposition: Recovery Room
[2019-03-15] MEDS ORDERED: LIDOCAINE HCL 1% 20 ML VIAL INJ ONE (09:37)
--- NOTE | 2019-03-15 09:40 | Operative Report ---
Post Operative Report Pre & Post Diagnosis Operation Date: 03/15/19 08:00 Pre-Op Diagnosis: Abdominal aortic aneurysm Post-Op Diagnosis: Abdominal aortic aneurysm I identified the patient and participated in the time-out.: Yes Procedure Operation Date: 03/15/19 08:00 Actual Procedures p Percutaneous Endovascular Abdominal Aortic Aneurysm Repair, Bilateral femoral percutaneous closure - Miguel Dutton MD Surgeon Miguel Dutton MD Pediatric Lpn Yamile Garcia MD Estimated Blood Loss 50 Findings Consistent with Post-Op Diagnosis Specimens none Anesthesia Type MAC Complications none Disposition Disposition: Recovery Room Indications Bartolome Lutz is a 73-year-old gentleman who we have been following for abdominal aortic aneurysm which is now increased to 5.5 cm in diameter. I have discussed the risks options and benefits of the procedure with the patient. The patient understands the risks options and benefits and agrees to the procedure. Description of Procedure The patient was brought to the angio suite and placed in the supine position. Anesthesia was induced. A surgical time out was performed and the patient was identified. The patient was prepped and draped in a sterile fashion. Percutaneous access of the femoral arteries was obtained in the bilateral groins. Five nepali sheaths were placed bilaterally. Hand injection showed the right femoral sheath to be in common femoral artery. The puncture was then preclosed with two proglide devices and then an 8 Fr sheath inserted. An 035 glidewire was passed into the supra renal aorta. A Kumpe caheter was then inserted and the wire exchanged to a Gerald wire. The sheath was then replaced by a 16 Tongan dry seal sheath. Hand injection of the left femoral sheath showed the puncture to be in the common femoral artery. Two proglide devices were then used to preclose the puncture and then an 8Fr sheath was inserted. An 035 glide wire was then passed to the supra renal aorta. A Kumpe catheter was then inserted and the wire exchanged to a Gerald wire. The 8Fr was then exchanged to a 12Fr dry seal sheath. A pig tail was passed up the left sheath. A Gravel Switch Excluder AAA Endoprosthesis measuring 23 mm x 14.5 mm x 16 cm was plassed on the right to just below the renals proximally. An aortogram was performed showing the location of the renal arteries. The graft was then deployed just below the lower margin of the left renal artery. The gate was then cannulated using a 035 wire and a Kumpe catheter. The sheath was then advanced into the gate. We then placed a Gravel Switch Excluder AAA Endoprothesis iliac extension on the left measuring 16 mm x 14.5 mm x 12 cm. Following completion all the attachement sites and overlaps were ballooned with a Q 50 balloon. Completion angiogram was performed which showed a small type II endoleak distally. No Type I leaks were seen. Following completion of the above all wires and sheaths were removed from the bilateral groins and the femoral arteries were closed with the Proglide devices. Both surgical sites were hemostatic. Sterile dressings were applied. Sponge and needle counts were correct. The patient tolerated the procedure well without any complications. Dr. Dutton was present and scrubbed for the procedure.
[2019-03-15] MEDS ORDERED: ARISTA ABSORBABLE HEMOSTAT 3GM TOP ONE (09:43)
[2019-03-15] MEDS ORDERED: ONDANSETRON INJ 2 MG/ML 2 ML VIAL IV PRN ×2 (10:16→11:29)
[2019-03-15] MEDS ORDERED: PROMETHAZINE HCL 12.5 MG in SODIUM CHLORIDE 0.9% 50 ML IV PRN (10:16)
[2019-03-15] MEDS ORDERED: ePHEDrine sulfate 50 MG/ML AMP IV PRN (10:16)
[2019-03-15] MEDS ORDERED: fentaNYL citrate 100 MCG/2 ML VIAL IV PRN (10:16)
[2019-03-15] MEDS ORDERED: LABETALOL HCL IV 5 MG/ML 20ML IV PRN (10:16)
[2019-03-15] MEDS ORDERED: NALOXONE HCL 0.4 MG/1 ML VIAL/CARP IV PRN (10:16)
[2019-03-15] MEDS ORDERED: FLUMAZENIL 0.1 MG/1 ML 10 ML VIAL IV PRN (10:16)
[2019-03-15] MEDS ORDERED: ATROPINE SULFATE 0.1 MG/ML 10ML SYR IV PRN (10:16)
[2019-03-15 10:52] LABS: Hematocrit (blood only) 40.6 % (42-52); Hemoglobin 14.2 g/dL (14.0-18.0)
--- NOTE | 2019-03-15 11:07 | Anesthesiology Progress Note ---
Date of Service March 15, 2019 Anesthesia Post Procedure Vital Signs Vital Signs: Temp Pulse Pulse Resp BP BP Pulse Ox 03/15/19 10:45 37.2 C 75 16 143/89 H 95 03/15/19 10:35 37.2 C 73 18 147/86 H 95 03/15/19 10:25 36.4 C L 75 16 138/85 92 03/15/19 10:15 36.4 C L 75 14 140/84 93 03/15/19 10:05 36.4 C L 76 16 143/85 H 143 H 03/15/19 09:57 36.4 C L 79 18 147/89 H 93 03/15/19 07:10 137/95 03/15/19 07:07 36.6 C 81 20 158/90 H 96 Transfer of Care Handoff Completed per policy Notes Mental Status: alert / awake / arousable Patient Amnestic to Procedure: Yes Nausea / Vomiting: adequately controlled Pain: adequately controlled Airway Patency, RR, SpO2: stable & adequate BP & HR: stable & adequate Hydration State: stable & adequate Anesthetic Complications: no major complications apparent
[2019-03-15] MEDS ORDERED: ALBUTEROL HFA 8 GM INHALER INH PRN (11:29)
[2019-03-15] MEDS ORDERED: NITROGLYCERIN SL 0.4 MG/TAB TAB SL PRN (11:29)
[2019-03-15] MEDS ORDERED: OXYCODONE/ACETAMINOPHEN 5mg/325mg TAB PO PRN (11:29)
[2019-03-15] MEDS: LACTATED RINGER'S 1,000 ML IV SCH ×2 (11:51→20:13)
--- NOTE | 2019-03-15 12:29 | Critical Care Consultation ---
Date of Consultation March 15, 2019 Assessment & Plan (1) Admitted to intensive care unit: Mr. Bartolome Lutz is a 73 y/o male with past medical history of AAA, asthma, chronic back pain, COPD, CAD, HLD, melanoma, hypothyroid, HTN, osteoporosis, presents to ICU for post-op management of abdominal aortic aneurysm repair via endovascular technique---PEVAR. Neuro: alert oriented x3 Percocet 5mg/325mg 1-2 tab PO q4H PRN pain Cardiac/Vascular Hx of HTN, HLD, AAA, CAD s/p PEVAR Currently hemodynamically stable, c/w cardiac monitoring c/w home Toprol 25mg N/V checks per protocols ASA 81mg PO HS sharad Pulm: Hx of COPD Currently stable encourage incentive spirometry GI: Diet heart healthy continue with Multivitamins, Vit B6 100mg PO qAM Sharad, Vit D3 1,000 units PO BID Renal/Lytes IVF's LR @ 125mL/hr : current mathews cath Endo: Hypothyroid - c/w Synthroid 25mcg daily Heme: Monitor for signs of bleeding ID: No current active concerns for infection Received Ancef 2gm per operative infection ppx Lines: peripheral IV DVT: No current chemical in post-op setting (2) Aortic aneurysm: (3) Hypertension: (4) COPD (chronic obstructive pulmonary disease): (5) CAD (coronary artery disease): Supervising Physician Co-Signing Physician Notes Dr. Griffin was resident physician during care of patient. I separately evaluated patient for lamar portions of the history and the exam. I was present during the critical portion of medical decision making, and I discussed the case with the resident. I generally agree with the findings and plan. History of Present Illness Reason for Consultation: Post-op management Requesting Physician: Miguel Dutton MD Attending Physician: Miguel Dutton MD History of Present Illness Mr. Bartolome Lutz is a 73 y/o male with past medical history of AAA, asthma, chronic back pain, COPD, CAD, HLD, melanoma, hypothyroid, HTN, osteoporosis, presents to ICU for post-op management of abdominal aortic aneurysm repair via endovascular technique---PEVAR. No current signs of complications. He appears to have tolerated the procudure well. He notes chronic back pain. No chest pain, shortness of breath, nausea, vomiting, dizziness. Allergies Allergy/AdvReac Type Severity Reaction Status Date / Time alendronate sodium AdvReac severe Verified 03/15/19 06:57 "bone aches" risedronate sodium AdvReac severe Verified 03/15/19 06:57 "bone aches" Home Medications Home Medications Medication Instructions Recorded Confirmed Type albuterol sulfate 1 puff INHALATION Q6H PRN 08/06/18 03/07/19 History calcium carbonate [Calcium 600] 1,200 mg PO QAM 08/06/18 03/15/19 History cholecalciferol (vitamin D3) 1,000 unit PO BID 08/06/18 03/15/19 History [Vitamin D3] levothyroxine 25 mcg PO QAM 08/06/18 03/15/19 History metoprolol succinate 25 mg PO QAM 08/06/18 03/15/19 History nitroglycerin 1 dose SUBLINGUAL UD PRN 08/06/18 03/07/19 History PreserVision AREDS 2 tab PO BID 03/01/19 03/15/19 History pyridoxine (vitamin B6) [Vitamin 100 mg PO QAM 03/01/19 03/15/19 History B-6] aspirin 81 mg PO HS 03/07/19 03/15/19 History Patient History Medical History AAA (abdominal aortic aneurysm) 5.5cm (reason for upcoming surgery) Asthma stable CAD (coronary artery disease) non-obstructive COPD (chronic obstructive pulmonary disease) stable Chronic back pain Dyslipidemia HTN (hypertension) History of basal cell carcinoma s/p excision History of kidney stones History of melanoma s/p excision Hypothyroidism Lumbar stenosis Osteoporosis TMJ click rare clicking, no locking Surgical History History of basal cell carcinoma (BCC) excision History of cardiac cath 5+ YEARS AGO= NO STENTS History of colonoscopy History of lithotripsy History of melanoma excision History of tonsillectomy History of tooth extraction Family History Other No pertinent family history in first degree relatives Social History Preferred Language: American Communication Ability: Effective Time Broker Required: No Beliefs That Will Affect Care: None Current Living Situation: Spouse Other Information That Helps Us Care for You: No Feels Safe at Home: Yes Safety Concerns: Feels Safe At This Time Smoking Status: Former smoker Do You Dip or Chew Tobacco: No ; Smoking End Date: Quit 2014; hx 1 PPD ; Second Hand Exposure: No ; Tobacco Cessation Education Requested by Patient: No Hx Alcohol Use: Yes Alcohol type: beer, wine and hard liquor Hx Substance Use: No Review of Systems Review of Systems: All systems reviewed & are unremarkable except as noted in HPI & below Constitutional: no fever and no chills Eyes: no diplopia and no photophobia Ear, Nose, Mouth, Throat: no nasal congestion and no epistaxis Respiratory: no cough and no dyspnea Cardiovascular: no chest pain and no palpitations Gastrointestinal: no abdominal pain and no nausea Musculoskeletal: + back pain (chronic) Integumentary: no rash and no urticaria Neurologic: no numbness and no paresthesia Physical Exam Constitutional: WD/WN, vitals as above cooperative and comfortable Eyes: PERRL and EOM intact bilaterally ENMT: external ear and nose normal, oropharynx normal Neck: normal visual inspection and trachea midline Respiratory: normal respiratory effort, lungs clear to auscultation Cardiovascular: Rate/Rhythm: regular rate and regular rhythm Musculoskeletal: Head/Neck/Chest: normocephalic and head atraumatic Skin: no rashes, warm and dry Neurologic: moves all extremities and awake Psychiatric: A+Ox3, euthymic affect Results & Data Vital Signs (Past 12 Hours) Vital Signs Temp Pulse Pulse Resp BP BP Pulse Ox 03/15/19 10:45 37.2 C 75 16 143/89 H 95 03/15/19 10:35 37.2 C 73 18 147/86 H 95 03/15/19 10:25 36.4 C L 75 16 138/85 92 03/15/19 10:15 36.4 C L 75 14 140/84 93 03/15/19 10:05 36.4 C L 76 16 143/85 H 143 H 03/15/19 09:57 36.4 C L 79 18 147/89 H 93 03/15/19 07:10 137/95 03/15/19 07:07 36.6 C 81 20 158/90 H 96 Laboratory Results Laboratory Results - last 24 hr 03/15/19 03/15/19 06:34 10:37 Hgb 14.2 Hct 40.6 L Blood Type O Positive Antibody Screen NEGATIVE Crossmatch See Detail Medications Administered Cefazolin Sodium (Ancef 2000mg) 2,000 mg in 15 mls @ 3.75 mls/min IV PREOP SHARAD Stop: 03/15/19 18:00 Last Admin: 03/15/19 08:00 Dose: 3.75 mls/min Documented by: [id number] Lactated Ringer's (Lr) 1,000 mls @ 15 mls/hr IV .Q24H SHARAD Stop: 03/16/19 05:59 Last Infusion: 03/15/19 08:00 Dose: 0 mls/hr Documented by: [id number] Admin: 03/15/19 07:07 Dose: 15 mls/hr Documented by: [id number] Lactated Ringer's (Lr) 1,000 mls @ 125 mls/hr IV .Q8H SHARAD Stop: 04/14/19 11:44 Last Admin: 03/15/19 11:51 Dose: 125 mls/hr Documented by: [id number] Iodixanol (Visipaque) 95 ml IV UD PRN PRN Reason: Radiology Use Stop: 03/19/19 09:33 Last Admin: 03/15/19 09:35 Dose: 95 ml Documented by: [id number] Oxycodone/Acetaminophen (Percocet 5mg/325mg) 1 - 2 tab PO Q4H PRN PRN Reason: Moderate Pain Stop: 03/29/19 11:28 Last Admin: 03/15/19 11:43 Dose: 2 tab Documented by: [id number] PG Care Time/CCT Total # of Minutes Spent Total Time Spent with Patient: Total time spent is greater than 50% in coordination of care (as documented) at patient's floor/unit and/or counseling patient: Resident Activity Tracking Resident Involvement: Resident Care Provided Care Provided: Adult Hospital Medicine (ICU) (1) Aortic aneurysm Aortic location: abdominal aorta Presence of rupture: without rupture Qualified Code(s): I71.4 - Abdominal aortic aneurysm, without rupture (2) Hypertension Hypertension type: unspecified Qualified Code(s): I10 - Essential (primary) hypertension
[2019-03-15] MEDS: CEFAZOLIN 2000MG 2,000 MG/15 ML SYR IV SCH ×2 (17:19→23:43)
[2019-03-15] MEDS: CEROVITE ADV FORMULA TAB PO SCH (20:13)
[2019-03-15] MEDS: CHOLECALCIFEROL 1,000 UNITS TAB PO SCH (20:13)
[2019-03-15] MEDS ORDERED: ASPIRIN 81 MG ECTAB PO SCH (21:00)
[2019-03-16 04:28] LABS: Basophils # (auto) 0.01 K/uL (0-0.2); Basophils % (auto) 0.1 %; Eosinophils # (auto) 0.01 K/uL (0-0.5); Eosinophils % (auto) 0.1 %; Hematocrit (blood only) 40.1 % (42-52); Immature Granulocytes # (auto) 0.06 K/uL (0.00-0.02); Immature Granulocytes % (auto) 0.5 %; Lymphocytes % (auto) 11.4 %; Mean Corpuscular Hemoglobin 31.9 pg (25-34); Mean Corpuscular Hgb Conc 34.9 g/dL (32-36); Mean Corpuscular Volume 91.3 fL (80-100); Mean Platelet Volume 9.6 fL (7.4-10.4); Monocytes # (auto) 0.98 K/uL (0.11-0.59); Neutrophils # (auto) 9.84 K/uL (1.4-6.5); Neutrophils % (auto) 79.9 %; Platelet Count 192 K/uL (130-400); RDW Coefficient of Variation 12.7 % (11.5-14.5); RDW Standard Deviation 42.5 fL (36.4-46.3); Red Blood Count 4.39 M/uL (4.7-6.1)
[2019-03-16 04:50] LABS: BUN Creatinine Ratio 15.8 (10-20); Calcium 8.3 mg/dl (8.5-10.1); Creatinine Clr Calc Pharmacy 64.5 ml/min; Est GFR (African American) 77.4; Est GFR (Non-African American) 66.8; Potassium 4.2 mmol/L (3.5-5.1)
[2019-03-16] MEDS ORDERED: LEVOTHYROXINE SODIUM 25 MCG TABLET PO SCH (06:30)
--- NOTE | 2019-03-16 07:47 | Surgery Progress Note ---
Date of Service March 16, 2019 Assessment & Plan (1) History of repair of aneurysm of abdominal aorta using endovascular stent graft: Patient is day 1 after a percutaneous endovascular aortic repair. He is doing well. He is ready to be discharged today. Subjective Patient is awake and alert. He has no complaints he claims he took pain pills last night but nothing during the night or this morning.He denies any leg or foot pain. Physical Exam Physical Exam: Groins show no evidence of hematoma. Pressure dressings are intact. He has good distal flow in both lower extremities. Constitutional: WD/WN, vitals as above Results & Data Vital Signs (Past 12 Hours) Vital Signs Temp Pulse Resp BP Pulse Ox 03/16/19 06:15 80 22 150/88 H 93 03/16/19 06:00 82 19 137/75 93 03/16/19 05:45 76 18 130/75 92 03/16/19 05:31 77 18 93 03/16/19 05:30 76 18 132/72 93 03/16/19 05:15 76 15 143/71 H 93 03/16/19 05:01 78 21 93 03/16/19 05:00 79 20 140/84 93 03/16/19 04:45 77 18 144/86 H 92 03/16/19 04:30 76 18 148/84 H 93 03/16/19 04:15 80 24 134/77 91 03/16/19 04:01 82 19 90 03/16/19 04:00 36.4 C L 76 17 140/76 93 03/16/19 03:45 79 19 137/81 91 03/16/19 03:30 79 21 148/86 H 93 03/16/19 03:15 77 17 141/75 H 92 03/16/19 03:01 77 21 95 03/16/19 03:00 82 17 121/73 95 03/16/19 02:45 75 20 135/73 95 03/16/19 02:30 78 18 124/69 95 03/16/19 02:15 79 18 138/77 95 03/16/19 02:01 75 17 94 03/16/19 02:00 75 18 130/70 95 03/16/19 01:45 78 18 129/69 95 03/16/19 01:30 79 21 123/67 95 03/16/19 01:16 77 17 94 03/16/19 01:15 78 19 130/72 94 03/16/19 01:01 77 17 94 03/16/19 01:00 80 17 126/76 95 03/16/19 00:46 79 16 94 03/16/19 00:45 81 18 130/75 94 03/16/19 00:31 82 16 93 03/16/19 00:30 80 16 130/74 93 03/16/19 00:16 78 18 95 03/16/19 00:15 80 15 130/71 96 03/16/19 00:01 81 15 93 03/16/19 00:00 36.5 C 82 15 136/74 93 03/15/19 23:46 83 21 93 03/15/19 23:45 85 21 137/78 95 03/15/19 23:31 81 18 94 03/15/19 23:30 80 16 131/74 95 03/15/19 23:16 84 20 94 03/15/19 23:15 84 22 149/83 H 94 03/15/19 23:01 81 23 92 03/15/19 23:00 84 20 140/74 92 03/15/19 22:46 95 H 18 92 03/15/19 22:45 88 32 H 151/85 H 93 03/15/19 22:31 89 21 94 03/15/19 22:30 82 17 135/76 94 03/15/19 22:16 82 19 95 03/15/19 22:15 85 20 136/71 95 03/15/19 22:01 84 18 95 03/15/19 22:00 85 21 132/72 95 03/15/19 21:46 83 17 93 03/15/19 21:45 81 19 136/76 93 03/15/19 21:31 88 22 94 03/15/19 21:30 85 17 131/78 95 03/15/19 21:15 83 19 141/81 H 94 03/15/19 21:01 86 16 93 03/15/19 21:00 84 16 140/76 93 03/15/19 20:45 85 16 148/71 H 93 03/15/19 20:30 84 14 128/70 94 03/15/19 20:15 90 26 H 155/93 H 94 03/15/19 20:01 86 22 93 11/08/19 20:00 36.6 C 85 21 146/81 H 93
[2019-03-16] MEDS: CEROVITE ADV FORMULA TAB PO SCH (07:56)
[2019-03-16] MEDS: CHOLECALCIFEROL 1,000 UNITS TAB PO SCH (07:56)
[2019-03-16] MEDS ORDERED: METOPROLOL SUCC 25MG EXT REL TAB PO SCH (09:00)
[2019-03-16] MEDS ORDERED: CALCIUM 600MG + VIT D 400 IU TAB PO SCH (09:00)
[2019-03-16] MEDS ORDERED: PYRIDOXINE HCL 50 MG TAB PO SCH (09:00)
--- NOTE | 2019-03-18 09:06 | Discharge Summary ---
Date of Service March 18, 2019 Admission HPI Per Admitting Provider We had the pleasure of seeing Mr. Lutz at our [facility]. As you are aware, he is a 73-year-old gentleman who I have been following for abdominal aortic aneurysm who recently had presented to the hospital with abdominal pain related to kidney stones and at that time had undergone a CT scan, which revealed an abdominal aortic aneurysm that had increased in size and reached about 5.5 cm in diameter now. The patient was evaluated at that time and his abdominal pain, was found to be related to his kidney stones. Today, he returns for evaluation in the office and reports that his abdominal pain has resolved, his chronic back pain and has not changed. He denies any chest pain or shortness of breath. Denies any fevers, chills, diarrhea or constipation. Admission Exam Per Admitting Provider PHYSICAL EXAMINATION: Blood pressure is 142/76 on the left, 150/80 on the right, heart rate is 76, satting 97% on room air. General: The patient is awake, alert, oriented, follows commands, does not appear to be in distress. Chest: The patient has nonlabored respiratory. Regular rate and rhythm. Abdomen: Soft, nontender, nondistended, no scars or wounds on his abdomen, groins are clear, no sign of any rash in the groins; femoral pulses bilaterally palpable, DP pulses bilaterally. Moves both lower extremities. Motor and sensory is intact. No open wounds or ulcers on his feet. Principal Diagnosis 1. s/p PEVAR 2. AAA 5.5cm Discharge Exam Constitutional WD/WN, vitals as above Cardiovascular Rate/Rhythm: regular rate and regular rhythm Vessels: femoral pulses present, posterior tibial pulses present and dorsalis pedis pulses present; + abnormal peripheral pulses Extremities: normal capillary refill Gastrointestinal (Abdomen) normal bowel sounds, soft, nontender, no hepatosplenomegaly Musculoskeletal no cyanosis or clubbing, extremities motor strength 5/5 Skin no rashes, warm and dry Trauma: + puncture (BL groin punctures C/D/I, mild tenderness) Neurologic moves all extremities and awake; no focal motor deficits and not confused Psychiatric A+Ox3, euthymic affect Discharge Data Allergies Allergy/AdvReac Type Severity Reaction Status Date / Time alendronate sodium AdvReac severe Verified 03/15/19 06:57 "bone aches" risedronate sodium AdvReac severe Verified 03/15/19 06:57 "bone aches" Consultations 03/15/19 11:29 Consult Stitching Machine Setter Routine Procedures Performed Operation Date: 03/15/19 08:00 Actual Procedures p Percutaneous Endovascular Aneurysm Repair, femoral percutaneous closure - Miguel Dutton MD Ordered Studies 03/15/19 07:11 EV aorto bi iliac repair Routine Hospital Course (1) History of repair of aneurysm of abdominal aorta using endovascular stent graft: Patient is day 1 after an unconplicated percutaneous endovascular aortic repair. He is doing well. He is ready to be discharged today. Total Time Total Time Spent Total Time Spent (In Minutes): 15 minutes Total Time Includes: Examination of the Patient, Discharge Planning and Medication Reconciliation Discharge Plan Discharge Items Patient Disposition: Home - Self-Care Reason For Visit: ABDOMINAL AORTIC ANEURSYM Discharge Diagnosis: Abdominal aortic aneurysm, endovascular repair Activity: Per Instructions section Lifting: Gradually increase as tolerated Bathing Comment: may shower Exercise/Sports: Gradually increase as tolerated Driving/Machine Use: Resume 1 day after discharge Weightbearing: Full weightbearing Non-emergency contact: Surgeon Call non-emergency contact if: you have any medication questions, your symptoms worsen, your pain is not controlled, your pain is worsening, your pain is unusual for you, your pain is concerning for you, your temperature is above 101.5, your wound has increased redness, your wound has increased drainage and your wound pain has increased Follow-up/Referrals: Krista Koenig MD [Primary Care Provider] - Diet: Heart Healthy Addtl Attending Provider Instructions: SPECIAL CARE INSTRUCTIONS: Medications: * Continue to take your medications as directed. Incision/Puncture Site Care: * You will have an incision or puncture in each of your groins. Liquid glue will be used to seal your incisions/puncture site. This will lift off as the incisions/puncture sites heal. * If Liquid glue is not used, there will be small dressings covering your incisions. After you get home, you may remove the dressings and shower - allowing the warm soapy water to run over it. * Be sure to dry the sites well and keep them dry. * DO NOT SOAK IN A TUB/POOL/etc. UNTIL ALL SURGICAL SITES ARE HEALED. DO NOT REMOVE THE GLUE UNTIL THE INCISIONS HEAL. Restrictions: * Limit yourself to shake feeder activity for the first week. * You may walk and go up and down steps. * Avoid excessive bending or movement at the level of the incisions or punctures. Risks and Possible Complications: * Infection/Drainage/Bleeding - Drainage or bleeding from the in cisions/puncture site should be minimal. If you have excessive bleeding or drainage, call our office ([phone]) right away. * Pain/Numbness - You may experience some mild pain or soreness at your incision sites. You may also have some numbness around the incisions or into the insides of your thighs. Bruising is normal and should resolve within 2 weeks. * Changes in Appetite or Bowel Habits - Mostly related to anesthesia and pain medication, some patients have reported decreased appetite and/or problems with constipation. These symptoms usually improve over a few weeks. Remembering to take an [id number] stool softener, as directed, will help you to avoid constipation. Call our office and seek emergent treatment if you develop: * Fever or chills * Have a temperature greater than 101 degrees F * Any redness or purulent drainage from your incisions or punctures * Severe abdominal, chest or back pain SKIN IRRITATION: * You may experience some redness and/or swelling in the area where radiation was administered. If any skin irritation occurs, please contact your family physician. You will be receiving a call from the Vascular Surgery Nurse after you are discharged. FOLLOW UP VISIT: It is important for you to keep your follow up appointments with your medical provider. Keep any scheduled doctor appointments. Call [phone] to schedule a follow up appointment if one not already s cheduled. Pending Studies at Discharge: No Stand-Alone Forms: My [facility], Smoking Cessation Medications and DC Order Prescriptions: Continued levothyroxine 25 mcg Tablet 25 mcg PO QAM RF: 0 calcium carbonate [Calcium 600] 600 mg calcium (1,500 mg) Tablet 1,200 mg PO QAM RF: 0 nitroglycerin 0.4 mg Tablet, Sublingual 1 dose sublingual UD PRN (Reason: Chest Pain) RF: 0 metoprolol succinate 25 mg Tablet Extended Release 24 Hr 25 mg PO QAM RF: 0 albuterol sulfate 90 mcg/actuation Hfa Aerosol Inhaler 1 puff INHALATION Q6H PRN (Reason: Shortness Of Breath) RF: 0 cholecalciferol (vitamin D3) [Vitamin D3] 1,000 unit Capsule 1,000 unit PO BID RF: 0 pyridoxine (vitamin B6) [Vitamin B-6] 100 mg Tablet 100 mg PO QAM RF: 0 PreserVision AREDS [id number] Tablet 2 tab PO BID RF: 0 aspirin 81 mg Tablet,Chewable 81 mg PO HS RF: 0 Discharge Orders: Discharge Order (Routine); Ordered 03/16/19 Ordered By: Miguel Dutton Admission Data Admit Date/Time: 03/15/19 07:13 Attending Provider: Miguel Dutton Admit Provider: Miguel Dutton Primary Care Provider: Krista Koenig Other Providers: Jesus Manuel Grajeda ; Hermilo Ojeda ; Omar Bellamy ; Dileep Soliman ; Alex Chavira ; Eder Alexander ; Jarrod Becerra ; Jose Nelson ; Joslyn Sheriff ; Yue Lagos ; Edmar Pino ; Fletcher Alvarado ; Bartolome Givens ; Rowdy Bonner. Other Interventions: Discharge Summary Assessment (RN) Last Done: 03/16/19 08:30 DC Date/Time DO NOT enter until pt leaves facility: 03/16/19 09:18
== END 2019-03-16 09:18 | disposition home or self-care (01) | DRG 269 ==
LOC: ASU 06:15 → 1E 07:13